=== PATIENT | female | born 1960 | race African-American/Black ===

== ENCOUNTER 2018-03-16 07:53 | Day surgery (SDC) | payer OTHER ==
[~2018-03-16 07:53] MED LIST: LIDOCAINE 1% PF 2 ML VIAL. ID; LIDOCAINE 2% JELLY 6ML IN APPLICATOR. MM; MORPHINE SULFATE 4 MG/ML DISP.SYRIN. IV; ONDANSETRON PF 4 MG/2 ML VIAL. IV; PROCHLORPERAZINE 10 MG/2 ML VIAL. IV; fentaNYL PF VIAL 100 MCG/2 ML VIAL IV
[2018-03-16] MEDS: IV RINGERS,LACTATED 1000ML 1,000 ML IV (09:03)
[2018-03-16 09:08] LABS: POC GLUCOSE 78 mg/dL (70-99)
[2018-03-16] MEDS ORDERED: LIDOCAINE 1% PF 2 ML VIAL. (09:49)
[2018-03-16] MEDS ORDERED: BALANCED SALT IRRIG OPHTH SOLN 15 ML BOTTLE. (09:49)
[2018-03-16] MEDS: CYCLOPENTOLATE 1% OPTH SOLUTION 2ML BOTTLE. OD ×3 (10:13→10:23)
[2018-03-16] MEDS: PHENYLEPHRINE 10% OPHTH SOLUTION 5ML BOTTLE. OD ×3 (10:13→10:23)
[2018-03-16] MEDS: PROPARACAINE 0.5% OPHTH SOLUTION 15ML BOTTLE. OD (10:13)
[2018-03-16] MEDS: CIPROFLOXACIN 0.3% OPHTH SOLUTION 5ML BOTTLE. OD (10:23)
[2018-03-16] MEDS ORDERED: MIDAZOLAM HCL/PF 2 MG/2 ML VIAL. (11:21)
[2018-03-16] MEDS ORDERED: CHONDROITIN-SOD-HYALURONATE 0.5 ML DISP.SYRIN. (11:49)
[2018-03-16] MEDS ORDERED: CHONDROIT-SOD-HYALURONATE KIT. (11:49)
[2018-03-16] MEDS: CHONDROIT-SOD-HYALURONATE KIT. (12:29)
[2018-03-16] MEDS: NEO/POLYMYX/DEXAMETH OPHTH OINTMENT 3.5GM TUBE. (12:29)
== END 2018-03-16 14:12 | disposition home or self-care (01) ==
LOC: SURG 07:53
DX: E11.36 Type 2 diabetes mellitus with diabetic cataract (principal); H25.813 Combined forms of age-related cataract, bilateral; I10 Essential (primary) hypertension; Z90.712 Acquired absence of cervix with remaining uterus; Z79.4 Long term (current) use of insulin; Z79.899 Other long term (current) drug therapy; Z86.73 Personal history of transient ischemic attack (TIA), and cerebral infarction without residual deficits; E78.00 Pure hypercholesterolemia, unspecified; E66.9 Obesity, unspecified; Z87.440 Personal history of urinary (tract) infections; E03.9 Hypothyroidism, unspecified
CPT/HCPCS: 66984; 82962; C1780; J0171; J2250

== ENCOUNTER → 2018-03-23 | Day surgery (SDC) | payer OTHER ==
[~2018-03-23] MED LIST changes: +ACETYLCHOLINE CHLORIDE 1:100 20 MG/2 ML INTRAOCULAR KIT.; +BALANCED SALT IRRIG OPHTH SOLN 15 ML BOTTLE.; +CHONDROIT-SOD-HYALURONATE KIT.; +LABETALOL 20 MG/4 ML DISP.SYRIN.; +LIDOCAINE 1% PF 2 ML VIAL.; -LIDOCAINE 2% JELLY 6ML IN APPLICATOR. MM; +MIDAZOLAM HCL/PF 2 MG/2 ML VIAL.; +MORPHINE SULFATE 2 MG/ML DISP.SYRIN. IV; -MORPHINE SULFATE 4 MG/ML DISP.SYRIN. IV
[2018-03-23] MEDS: IV RINGERS,LACTATED 1000ML 1,000 ML IV (07:00)
[2018-03-23 09:24] LABS: POC GLUCOSE 141 mg/dL (70-99)
[2018-03-23] MEDS: PROPARACAINE 0.5% OPHTH SOLUTION 15ML BOTTLE. OS (09:28)
[2018-03-23] MEDS: PHENYLEPHRINE 10% OPHTH SOLUTION 5ML BOTTLE. OS ×3 (09:30→09:42)
[2018-03-23] MEDS: CYCLOPENTOLATE 1% OPTH SOLUTION 2ML BOTTLE. OS ×3 (09:30→09:42)
[2018-03-23] MEDS: CIPROFLOXACIN 0.3% OPHTH SOLUTION 5ML BOTTLE. OS (09:31)
[2018-03-23] MEDS: LIDOCAINE 2% JELLY 6ML IN APPLICATOR. MM ×3 (10:48→10:59)
[2018-03-23] MEDS: NEO/POLYMYX/DEXAMETH OPHTH OINTMENT 3.5GM TUBE. (12:34)
== END | disposition home or self-care (01) ==
LOC: SURG 08:14
DX: H26.9 Unspecified cataract (principal); I10 Essential (primary) hypertension; E78.00 Pure hypercholesterolemia, unspecified; Z86.73 Personal history of transient ischemic attack (TIA), and cerebral infarction without residual deficits; Z98.41 Cataract extraction status, right eye; Z96.1 Presence of intraocular lens; Z98.890 Other specified postprocedural states; E66.9 Obesity, unspecified; Z68.28 Body mass index [BMI] 28.0-28.9, adult; Z87.440 Personal history of urinary (tract) infections; E03.9 Hypothyroidism, unspecified; Z79.82 Long term (current) use of aspirin; Z79.4 Long term (current) use of insulin; Z79.899 Other long term (current) drug therapy
CPT/HCPCS: 66984; 82962; C1780; J0171; J2250; J3490